=== PATIENT | female | born 1975 | race African-American/Black ===

== ENCOUNTER → 2016-10-30 | Outpatient (CLI) | payer BC ==
[2016-10-30 10:49] LABS: BILIRUBIN,URINE NEGATIVE (NEGATIVE); BLOOD/HEMOGLOBIN,URINE NEGATIVE (NEGATIVE); GLUCOSE, URINE NEGATIVE (NEGATIVE); KETONES,URINE NEGATIVE (NEGATIVE); LEUKOCYTE ESTERASE ,URINE 3+ (NEGATIVE); NITRITES,URINE NEGATIVE (NEGATIVE); PH,URINE 6.5 (5.0 - 8.0); PROTEIN,URINE NEGATIVE (NEGATIVE); UROBILINOGEN,URINE NORMAL (NORMAL)
[2016-10-30 10:49] LABS: BASOPHILS # (AUTO) 0.1 X10^3/uL (0.0-0.1); BASOPHILS % (AUTO) 0.8 % (0.2-1.0); EOSINOPHILS # (AUTO) 0.2 x10^3/uL (0.0-0.2); HEMATOCRIT 36.6 % (36.0-47.0); HEMOGLOBIN 12.2 g/dL (12.0-16.0); LYMPHOCYTES # (AUTO) 2.6 X10^3/uL (1.3-2.9); LYMPHOCYTES % (AUTO) 33.6 % (21.0-51.0); MEAN CORPUSCULAR HEMOGLOBIN 29.2 pg (27.0-34.0); MEAN CORPUSCULAR HGB CONC 33.5 g/dL (33.0-35.0); MEAN CORPUSCULAR VOLUME 87.1 fL (80.0-100.0); MEAN PLATELET VOLUME 8.4 fL (7.4-11.0); MONOCYTES # (AUTO) 0.4 x10^3/uL (0.3-0.8); MONOCYTES % (AUTO) 5.2 % (0.0-13.0); NEUTROPHILS # (AUTO) 4.6 x10^3/uL (2.2-4.8); NEUTROPHILS % (AUTO) 58.4 % (42.0-75.0); PLATELET COUNT 293 X10^3/uL (150.0-450.0); RED CELL DISTRIBUTION WIDTH 15.3 % (11.6-16.5); WHITE BLOOD COUNT 7.9 X10^3/uL (3.6-10.0)
[2016-10-30 10:56] LABS: APPEARANCE,URINE HAZY (CLEAR); BACTERIA,URINE TRACE /HPF (NEGATIVE); COLOR,URINE YELLOW (YELLOW); RBC,URINE 0-2 /HPF (NEGATIVE); SQUAMOUS EPITHELIAL CELL,UR FEW /HPF (NEGATIVE)
[2016-10-30 11:09] LABS: ALANINE AMINOTRANSFERASE 43 Units/L (12-78); ALBUMIN 3.8 g/dL (3.4-5.0); ALKALINE PHOSPHATASE 49 Units/L (46-116); ASPARTATE AMINO TRANSFERASE 19 Units/L (15-37); BLOOD UREA NITROGEN 8 mg/dL (7-18); CALCIUM 9.2 mg/dL (8.5-10.1); CARBON DIOXIDE 26.6 mmol/L (21-32); CHLORIDE 104 mmol/L (98-107); CHOL/HDL RATIO 2.9 (0.0-5.0); CHOLESTEROL 197 mg/dL (0-200); CREATININE 0.76 mg/dL (0.55-1.02); HDL CHOLESTEROL 69 mg/dL (40-60); SODIUM 137 mmol/L (136-145); TOTAL PROTEIN 7.4 g/dL (6.4-8.2); TRIGLYCERIDES 152 mg/dL (0-150); TSH (3RD GENERATION) 1.128 uIU/mL (0.358-3.74); eGFR BLACK RACES > 60 (>60); eGFR NON BLACK RACES > 60 (>60)
== END ==
LOC: LAB 10:23
PROVIDERS: ATTEND Family Medicine
DX: Z79.899 Other long term (current) drug therapy (principal); Z13.29 Encounter for screening for other suspected endocrine disorder; E78.4 Other hyperlipidemia; E55.9 Vitamin D deficiency, unspecified
CPT/HCPCS: 36415; 80053; 80061; 81001; 82306; 84439; 84443; 85025

== ENCOUNTER → 2016-11-25 | Outpatient (CLI) | payer BC ==
--- NOTE | 2016-11-28 08:20 | MG ---
HISTORY: SCREENING Comparison: None FINDINGS: Bilateral CC and MLO projections of the right and left breast were obtained. Heterogeneously dense f ibroglandular tissue is seen to be present. No dominant suspicious architectural distortion, mass or clustered microcalcifications can be observed to suggest malignancy. No skin thickening or nipple r etraction is appreciated. No pathological lymphadenopathy can be identified. IMPRESSION: NO RADIOGRAPHIC EVIDENCE OF MALIGNANCY. ACR CATEGORY I - NEGATIVE EXAM. FOLLOW-UP EXAM 1 YEAR. Diagnostic CAD was utilized and reviewed. * 0 (ZERO) - ASSESSMENT INCOMPLETE; ADDITIONAL IMAGING IS NEEDED. * 1/1 (ONE) - NEGATIVE. * 2/II (TWO) - BENIGN FINDINGS. * 3/III (THREE) - PROBABLY BENIGN FINDING; SHORT INTERVAL FOLLOW-UP SUGGESTED. * 4/IV (FOUR) - SUSPICIOUS ABNORMALITY; BIOPSY SHOULD BE CONSIDERED. * 5/V (FIVE) - HIGHLY SUSPICIOUS OF MALIGNANCY; BIOPSY SHOULD BE PERFORMED. A NEGATIVE X-RAY REPORT SHOULD NOT DELAY BIOPSY IF A DOMINANT OR CLINICALLY SUSPICIOUS MASS IS PRESENT; 4 TO 8 PERCENT OF CANCERS ARE NOT IDENTIFIED BY X-RAY. A NEGA TIVE REPORT MAY REINFORCE THE CLINICAL IMPRESSION. ADENOSIS AND DENSE BREASTS MAY OBSCURE AN UNDERLY ING NEOPLASM. Reported By:
== END ==
LOC: RAD 10:54
PROVIDERS: ATTEND Family Medicine
DX: Z12.31 Encounter for screening mammogram for malignant neoplasm of breast (principal)
CPT/HCPCS: 77067

== ENCOUNTER 2016-12-11 09:49 | Day surgery (SDC) | payer BC ==
[2016-12-11] MEDS ORDERED: D5 LR 1000 ML 1,000 ML IV ONE (10:27)
[2016-12-11] MEDS ORDERED: DIPRIVAN VIAL 20 ML ONE (11:34)
[2016-12-11 12:42] VITALS: BP 142/82
== END 2016-12-11 12:15 | disposition home or self-care (01) ==
LOC: SURG1 09:49
PROVIDERS: ATTEND Internal Medicine Gastroenterology
PROC: 0DJD8ZZ Inspection of Lower Intestinal Tract, Via Natural or Artificial Opening Endoscopic (ICD-10-PCS; principal; 2016-12-11 18:45)
PROC: 0DBN8ZX Excision of Sigmoid Colon, Via Natural or Artificial Opening Endoscopic, Diagnostic (ICD-10-PCS; principal; 2016-12-11 18:45)
DX: Z12.11 Encounter for screening for malignant neoplasm of colon (principal); Z80.0 Family history of malignant neoplasm of digestive organs; K63.5 Polyp of colon; K64.0 First degree hemorrhoids
CPT/HCPCS: A4217; J3490; J7120

== ENCOUNTER 2017-01-29 10:39 | Day surgery (SDC) | payer BC ==
[2017-01-29] MEDS ORDERED: D5 LR 1000 ML 1,000 ML IV ONE (10:52)
[2017-01-29] MEDS ORDERED: DIPRIVAN VIAL 20 ML ONE (12:04)
[2017-01-29 12:35] VITALS: BP 140/67
== END 2017-01-29 12:35 | disposition home or self-care (01) ==
LOC: SURG1 10:39
PROVIDERS: ATTEND Internal Medicine Gastroenterology
PROC: 0DB88ZX Excision of Small Intestine, Via Natural or Artificial Opening Endoscopic, Diagnostic (ICD-10-PCS; principal; 2017-01-29 17:15)
PROC: 0DB68ZX Excision of Stomach, Via Natural or Artificial Opening Endoscopic, Diagnostic (ICD-10-PCS; principal; 2017-01-29 17:15)
PROC: 0DJ08ZZ Inspection of Upper Intestinal Tract, Via Natural or Artificial Opening Endoscopic (ICD-10-PCS; principal; 2017-01-29 17:15)
DX: R07.89 Other chest pain (principal); R10.13 Epigastric pain; K21.9 Gastro-esophageal reflux disease without esophagitis; K20.8 Other esophagitis; K29.60 Other gastritis without bleeding; K29.80 Duodenitis without bleeding
CPT/HCPCS: A4217; J3490; J7120

== ENCOUNTER 2018-11-22 15:45 | Observation (INO) ==
[2018-11-22 16:43] LABS: BASOPHILS # (AUTO) 0.1 X10^3/uL (0.0-0.1); BASOPHILS % (AUTO) 0.7 % (0.2-1.0); EOSINOPHILS # (AUTO) 0.1 x10^3/uL (0.0-0.2); EOSINOPHILS % (AUTO) 1.1 % (0.9-2.9); HEMATOCRIT 42.5 % (36.0-47.0); HEMOGLOBIN 14.6 g/dL (12.0-16.0); LYMPHOCYTES # (AUTO) 2.6 X10^3/uL (1.3-2.9); LYMPHOCYTES % (AUTO) 27.4 % (21.0-51.0); MEAN CORPUSCULAR HEMOGLOBIN 31.7 pg (27.0-34.0); MEAN CORPUSCULAR HGB CONC 34.4 g/dL (33.0-35.0); MEAN CORPUSCULAR VOLUME 92.1 fL (80.0-100.0); MONOCYTES # (AUTO) 0.6 x10^3/uL (0.3-0.8); MONOCYTES % (AUTO) 6.6 % (0.0-13.0); NEUTROPHILS % (AUTO) 64.2 % (42.0-75.0); PLATELET COUNT 332 X10^3/uL (150.0-450.0); RED BLOOD COUNT 4.62 X10^6/uL (3.5-5.4); WHITE BLOOD COUNT 9.3 X10^3/uL (3.6-10.0)
[2018-11-22] MEDS: D5 1/2 NS 1000 ML 1,000 ML IV SCH (16:54)
[2018-11-22] MEDS: DILAUDID INJ IVP PRN ×2 (16:54→20:05)
[2018-11-22] MEDS: ZOFRAN INJ 4 MG VIAL IVP PRN (16:56)
[2018-11-22 17:00] LABS: ALANINE AMINOTRANSFERASE 163 Units/L (12-78); ALBUMIN 4.6 g/dL (3.4-5.0); ALKALINE PHOSPHATASE 112 Units/L (46-116); AMYLASE 51 Units/L (25-115); ASPARTATE AMINO TRANSFERASE 326 Units/L (15-37); BLOOD UREA NITROGEN 9 mg/dL (7-18); CALCIUM 9.6 mg/dL (8.5-10.1); CARBON DIOXIDE 27.7 mmol/L (21-32); CHLORIDE 97 mmol/L (98-107); LIPASE 236 Units/L (73-393); SODIUM 135 mmol/L (136-145); TOTAL PROTEIN 8.7 g/dL (6.4-8.2); eGFR NON BLACK RACES > 60 (>60)
[2018-11-22 17:27] VITALS: BMI 29.2
[2018-11-22] MEDS: PHENERGAN INJ 25 MG IM PRN (20:05)
[2018-11-23] MEDS: DILAUDID INJ IVP PRN ×5 (00:42→19:12)
[2018-11-23] MEDS: D5 1/2 NS 1000 ML 1,000 ML IV SCH ×4 (00:42→21:01)
[2018-11-23 05:10] LABS: BASOPHILS % (AUTO) 0.7 % (0.2-1.0); EOSINOPHILS # (AUTO) 0.1 x10^3/uL (0.0-0.2); EOSINOPHILS % (AUTO) 1.2 % (0.9-2.9); HEMATOCRIT 39.7 % (36.0-47.0); HEMOGLOBIN 13.2 g/dL (12.0-16.0); LYMPHOCYTES # (AUTO) 2.2 X10^3/uL (1.3-2.9); LYMPHOCYTES % (AUTO) 32.6 % (21.0-51.0); MEAN CORPUSCULAR HEMOGLOBIN 31.1 pg (27.0-34.0); MEAN CORPUSCULAR HGB CONC 33.3 g/dL (33.0-35.0); MEAN CORPUSCULAR VOLUME 93.2 fL (80.0-100.0); MEAN PLATELET VOLUME 8.1 fL (7.4-11.0); MONOCYTES # (AUTO) 0.5 x10^3/uL (0.3-0.8); MONOCYTES % (AUTO) 7.9 % (0.0-13.0); NEUTROPHILS # (AUTO) 3.9 x10^3/uL (2.2-4.8); NEUTROPHILS % (AUTO) 57.6 % (42.0-75.0); PLATELET COUNT 281 X10^3/uL (150.0-450.0); RED BLOOD COUNT 4.26 X10^6/uL (3.5-5.4); RED CELL DISTRIBUTION WIDTH 14.8 % (11.6-16.5); WHITE BLOOD COUNT 6.7 X10^3/uL (3.6-10.0)
[2018-11-23 05:24] LABS: ALANINE AMINOTRANSFERASE 319 Units/L (12-78); ALBUMIN 3.6 g/dL (3.4-5.0); ALKALINE PHOSPHATASE 136 Units/L (46-116); ASPARTATE AMINO TRANSFERASE 477 Units/L (15-37); BLOOD UREA NITROGEN 5 mg/dL (7-18); CALCIUM 8.6 mg/dL (8.5-10.1); CARBON DIOXIDE 27.4 mmol/L (21-32); CHLORIDE 100 mmol/L (98-107); COR NA(FOR HYPERGLY) 135 mmol/L (136-145); CREATININE 0.71 mg/dL (0.55-1.02); SODIUM 135 mmol/L (136-145); TOTAL PROTEIN 7.2 g/dL (6.4-8.2); eGFR NON BLACK RACES > 60 (>60)
[2018-11-23] MEDS: ZOFRAN INJ 4 MG VIAL IVP PRN (05:38)
[2018-11-23] MEDS ORDERED: PHARMACY CONSULT - DOSE _____ XX SCH (08:00)
[2018-11-23] MEDS: PHENERGAN INJ 25 MG IM PRN (08:33)
[2018-11-23] MEDS ORDERED: FLEET ENEMA ADULT PR ONE ×2 (10:22→11:00)
[2018-11-23] MEDS: PROTONIX TAB 40 MG PO SCH (14:11)
[2018-11-23] MEDS: MAALOX or MYLANTA PO PRN ×2 (14:12→19:06)
--- NOTE | 2018-11-23 22:59 | DR.PROGNOT ---
Hospital Progress Notes - Progress Note for Day of: Progress Note Date: 11/23/18 - Chief Complaint Chief Complaint: Rt side abdominal pain . tolerated liquid diet and had small BM after fleet enema . lab work showed elevated liver enzymes with norml bilirubin .. only mild elevated Alk phos . normal CBC .. afebrile . - Past Medical Family Social History Past Med/Fam/Surg Hx: No changes since H&P Allergies: Allergies Penicillins Allergy (Mild, Verified 11/19/18 09:05) Sulfa (Sulfonamide Antibiotics) [SULFA] Allergy (Verified 11/19/18 09:05) - Review Of Systems ROS: No change since H&P - Vital Signs Vital Signs: Temperature 99.1 F Pulse Rate [Right Brachial] 81 Pulse Rate [Left Radial] 83 Respiratory Rate 18 Blood Pressure [Right Arm] 112/72 Blood Pressure [Left Arm] 148/80 Blood Pressure 148/80 O2 Sat by Pulse Oximetry 99 - Physical Exam Oriented: Normal Eyes: Normal Ear: Normal Nose: Normal Cardiovascular: Normal : Normal, Dysuria GI:Auscultation: Normal Skin: Normal Musculoskeletal: Normal Psychiatric: Normal Mood Description: Depressed Speech Pattern: Clear, Appropriate - Laboratory and Diagnostics Result Diagrams: 11/23/18 04:54 11/23/18 04:54 Labs: Laboratory WBC 6.7 X10^3/uL (3.6-10.0) 11/23/18 04:54 RBC 4.26 X10^6/uL (3.5-5.4) 11/23/18 04:54 Hgb 13.2 g/dL (12.0-16.0) 11/23/18 04:54 Hct 39.7 % (36.0-47.0) 11/23/18 04:54 MCV 93.2 fL (80.0-100.0) 11/23/18 04:54 MCH 31.1 pg (27.0-34.0) 11/23/18 04:54 MCHC 33.3 g/dL (33.0-35.0) 11/23/18 04:54 RDW 14.8 % (11.6-16.5) 11/23/18 04:54 Plt Count 281 X10^3/uL (150.0-450.0) 11/23/18 04:54 MPV 8.1 fL (7.4-11.0) 11/23/18 04:54 Neut % (Auto) 57.6 % (42.0-75.0) 11/23/18 04:54 Lymph % (Auto) 32.6 % (21.0-51.0) 11/23/18 04:54 [place] % (Auto) 7.9 % (0.0-13.0) 11/23/18 04:54 Eos % (Auto) 1.2 % (0.9-2.9) 11/23/18 04:54 Baso % (Auto) 0.7 % (0.2-1.0) 11/23/18 04:54 Neut # (Auto) 3.9 x10^3/uL (2.2-4.8) 11/23/18 04:54 Lymph # (Auto) 2.2 X10^3/uL (1.3-2.9) 11/23/18 04:54 [place] # (Auto) 0.5 x10^3/uL (0.3-0.8) 11/23/18 04:54 Eos # (Auto) 0.1 x10^3/uL (0.0-0.2) 11/23/18 04:54 Baso # (Auto) 0.0 X10^3/uL (0.0-0.1) 11/23/18 04:54 Absolute Nucleated RBC 0.0 /100WBC 11/23/18 04:54 Sodium 135 mmol/L (136-145) L 11/23/18 04:54 Corrected Sodium 135 mmol/L (136-145) L 11/23/18 04:54 Potassium 3.4 mmol/L (3.5-5.1) L 11/23/18 04:54 Chloride 100 mmol/L (98-107) 11/23/18 04:54 Carbon Dioxide 27.4 mmol/L (21-32) 11/23/18 04:54 BUN 5 mg/dL (7-18) L 11/23/18 04:54 Creatinine 0.71 mg/dL (0.55-1.02) 11/23/18 04:54 Est GFR (MDRD) Af Amer > 60 (>60) 11/23/18 04:54 Est GFR (MDRD) Non-Af > 60 (>60) 11/23/18 04:54 Glucose 119 mg/dL (65-99) H 11/23/18 04:54 Calcium 8.6 mg/dL (8.5-10.1) 11/23/18 04:54 Corrected Calcium TNP 11/23/18 04:54 Total Bilirubin 0.40 mg/dL (0.2-1.0) 11/23/18 04:54 AST 477 Units/L (15-37) H 11/23/18 04:54 ALT 319 Units/L (12-78) H 11/23/18 04:54 Alkaline Phosphatase 136 Units/L (46-116) H 11/23/18 04:54 Total Protein 7.2 g/dL (6.4-8.2) 11/23/18 04:54 Albumin 3.6 g/dL (3.4-5.0) 11/23/18 04:54 Globulin 3.6 g/dL (2.5-4.5) 11/23/18 04:54 Albumin/Globulin Ratio 1.0 Ratio (1.1-2.1) L 11/23/18 04:54 Amylase 51 Units/L (25-115) 11/22/18 16:31 Lipase 236 Units/L (73-393) 11/22/18 16:31 - Assessment and Plan 1: post operative ileus .s/p lap floresita. liver dysfunction . same plan ,hepatitis profile . advance diet , repeat lab work . CT and MRCP .if still symptomatic
--- NOTE | 2018-11-23 23:49 | DR.H&P ---
H&P - History & Physical for Day of: H&P Date: 11/22/18 - Chief Complaint Chief Complaint: Pt was seen in the office with abdominal pain , nausea , vomiting and no BM . Pt is s/p lap floresita as OP . was found to have adhesions around the liver and chronic inflamation around the GB during surgery . was seen in the ER 2 days ago with the same symptoms .lab work was normal . admitted from the office for hydration and further evaluation - Past Medical History Past Medical History: Hypertension, Dyslipidemia - Past Surgical History Surgical History: , Cholecystectomy, Other - Family History Family Medical History: Diabetes Mellitus, Cancer, [place], Hypertension - Social History Does patient currently use any type of tobacco product: Yes Have you used tobacco products in the last 12 months: Yes Type of Tobacco Use: Cigarettes How many years tobacco product used: 24 Does any household member use tobacco: No Alcohol Use: None Drug Use: Prescription Drugs - Medications Home Medications: Penicillins Allergy (Mild, Verified 11/19/18 09:05) Sulfa (Sulfonamide Antibiotics) [SULFA] Allergy (Verified 11/19/18 09:05) CONTINUE taking the following medications dicyclomine 1 tab PO DAILY 11/23/18 [History] - Physical Exam Vital Signs: Temperature 99.1 F Pulse Rate [Right Brachial] 81 Pulse Rate [Left Radial] 83 Respiratory Rate 18 Blood Pressure [Right Arm] 112/72 Blood Pressure [Left Arm] 148/80 Blood Pressure 148/80 O2 Sat by Pulse Oximetry 99 Oriented: Normal - Assessment/Plan (1) Adynamic ileus Status: Acute - Allergies Allergies/Adverse Reactions: Allergies Allergy/AdvReac Type Severity Reaction Status Date / Time Penicillins Allergy Mild Verified 11/19/18 09:05 Sulfa (Sulfonamide Allergy Verified 11/19/18 09:05 Antibiotics) [SULFA]
[2018-11-24] MEDS: D5 1/2 NS 1000 ML 1,000 ML IV SCH ×3 (00:48→07:51)
[2018-11-24 05:05] LABS: ALANINE AMINOTRANSFERASE 186 Units/L (12-78); ALBUMIN 3.1 g/dL (3.4-5.0); ALKALINE PHOSPHATASE 105 Units/L (46-116); ASPARTATE AMINO TRANSFERASE 102 Units/L (15-37); BLOOD UREA NITROGEN 2 mg/dL (7-18); CALCIUM 8.3 mg/dL (8.5-10.1); CARBON DIOXIDE 25.5 mmol/L (21-32); CHLORIDE 105 mmol/L (98-107); COR NA(FOR HYPERGLY) 140 mmol/L (136-145); CREATININE 0.68 mg/dL (0.55-1.02); SODIUM 140 mmol/L (136-145); TOTAL PROTEIN 6.1 g/dL (6.4-8.2); eGFR NON BLACK RACES > 60 (>60)
[2018-11-24] MEDS: PROTONIX TAB 40 MG PO SCH (08:55)
[2018-11-24 09:18] VITALS: BP 125/81
[2018-11-29 06:23] LABS: HEPATITIS B SURFACE ANTIGEN Negative (Negative)
== END 2018-11-24 09:55 | disposition home or self-care (01) ==
LOC: MED/SURG
PROVIDERS: ADMIT Surgery; ATTEND Surgery
DX: R79.89 Other specified abnormal findings of blood chemistry; R10.84 Generalized abdominal pain; K56.0 Paralytic ileus; E78.2 Mixed hyperlipidemia; I10 Essential (primary) hypertension; Z90.49 Acquired absence of other specified parts of digestive tract; R11.2 Nausea with vomiting, unspecified
CPT/HCPCS: 36415; 80053; 80074; 82150; 83690; 85025; 96367; 96372; 96374; A4222; G0378; J1170; J2405; J2550; S5010

== ENCOUNTER 2024-06-13 06:39 | Inpatient (IN) ==
[~2024-06-13 06:39] MED LIST: KETAMINE HCL ONE; ULTANE GAS IN ONE; XYLOCAINE 2 % (PLAIN) ONE
[2024-06-13] MEDS: DUONEB 0.5 MG/3 MG (3 mL) NEB ONE (06:45)
[2024-06-13] MEDS: NOZIN NASAL SANITIZER TP ONE (06:45)
[2024-06-13] MEDS: NS 1,000 ML IV 1,000 ML IV SCH ×2 (07:00→11:17)
[2024-06-13] MEDS: NS IV PRN (07:00)
[2024-06-13] MEDS: PEPCID 20 MG VIAL IVP PRN (07:05)
[2024-06-13] MEDS: ZOFRAN INJ 4 MG VIAL IVP PRN (07:05)
[2024-06-13] MEDS: REGLAN INJ 10 MG VIAL IVP PRN (07:05)
[2024-06-13 07:13] VITALS: BMI 32.7
[2024-06-13] MEDS: ANCEF VIAL 1 GRAM IVP ONE (07:15)
[2024-06-13] MEDS: ANCEF VIAL 1 GRAM IV PRN (07:15)
[2024-06-13] MEDS: NS 100 ML IV 100 ML ONE (07:15)
[2024-06-13] MEDS: PEPCID 20 MG VIAL ONE (07:17)
[2024-06-13] MEDS: BRIDION ONE (07:17)
[2024-06-13] MEDS: FENTANYL VIAL INJ 100 mcg ONE ×2 (07:17→07:38)
[2024-06-13] MEDS: ZOFRAN INJ 4 MG VIAL ONE (07:17)
[2024-06-13] MEDS: ULTANE GAS IN ONE (07:17)
[2024-06-13] MEDS: ZEMURON 100 MG VIAL ONE (07:17)
[2024-06-13] MEDS: OFIRMEV IV 1000 MG VIAL 1,000 MG/100 ML VIAL IV ONE (07:17)
[2024-06-13] MEDS: REGLAN INJ 10 MG VIAL ONE (07:17)
[2024-06-13] MEDS: TORADOL 30 MG VIAL ONE (07:17)
[2024-06-13] MEDS: VERSED ONE (07:17)
[2024-06-13] MEDS: DIPRIVAN VIAL 20 ML ONE (07:17)
[2024-06-13] MEDS: VERSED IVP PRN (07:19)
[2024-06-13] MEDS: XYLOCAINE 2 % (PLAIN) INJ PRN (07:24)
[2024-06-13] MEDS: DIPRIVAN VIAL 160 ML IVP PRN (07:24)
[2024-06-13] MEDS: KETAMINE HCL IV PRN (07:28)
[2024-06-13] MEDS: BETADINE SOLN ONE (07:30)
[2024-06-13] MEDS: FENTANYL VIAL INJ 100 mcg IVP PRN (08:02)
[2024-06-13] MEDS ORDERED: ZOFRAN INJ 4 MG VIAL IVP PRN ×2 (08:09→10:55)
[2024-06-13] MEDS ORDERED: REGLAN INJ 10 MG VIAL IVP PRN (08:09)
[2024-06-13] MEDS ORDERED: BARHEMSYS INJ IVP PRN (08:09)
[2024-06-13] MEDS ORDERED: BENADRYL INJ 50 MG VIAL IVP PRN ×2 (08:09→10:55)
[2024-06-13] MEDS: NORMODYNE INJ 20 MG VIAL ONE (08:14)
[2024-06-13] MEDS: ProvayBLUE 0.5% ONE (08:17)
[2024-06-13] MEDS: PRECEDEX INJ VIAL IVP PRN (08:44)
[2024-06-13] MEDS: PRECEDEX INJ VIAL ONE (08:44)
[2024-06-13] MEDS: NS 1,000 ML IV 1,000 ML ONE (09:09)
[2024-06-13] MEDS: ZEMURON 100 MG VIAL IVP PRN (09:23)
[2024-06-13] MEDS: TORADOL 30 MG VIAL IVP PRN ×2 (09:32→16:43)
[2024-06-13] MEDS: OFIRMEV IV 1000 MG VIAL 1,000 MG/100 ML VIAL IV PRN (09:54)
[2024-06-13] MEDS: BRIDION IVP PRN (10:02)
[2024-06-13] MEDS: NORMODYNE INJ 20 MG VIAL IVP PRN (10:16)
[2024-06-13] MEDS ORDERED: NovoLIN R (or HumuLIN R) SUBCUT PRN (10:18)
[2024-06-13] MEDS: DILAUDID INJ ONE (10:20)
[2024-06-13] MEDS: DILAUDID INJ IVP PRN (10:25)
[2024-06-13] MEDS: APRESOLINE INJ 20 MG VIAL ONE (10:32)
[2024-06-13] MEDS ORDERED: NARCAN INJ IVP PRN (10:55)
[2024-06-13] MEDS: MORPHINE SULFATE PCA 30 MG IVP PRN (11:18)
[2024-06-13] MEDS: NovoLIN R (or HumuLIN R) SUBCUT PRN (12:37)
[2024-06-13] MEDS ORDERED: SNACK - Diabetic Appropriate PO SCH (20:00)
[2024-06-14] MEDS: SNACK - Diabetic Appropriate PO SCH (00:37)
[2024-06-14 05:19] LABS: BASOPHILS % (AUTO) 0.3 % (0.2-1.0); EOSINOPHILS % (AUTO) 0.3 % (0.9-2.9); HEMATOCRIT 28.5 % (36.0-47.0); HEMOGLOBIN 9.9 g/dL (12.0-16.0); LYMPHOCYTES # (AUTO) 3.2 X10^3/uL (1.3-2.9); LYMPHOCYTES % (AUTO) 31.4 % (21.0-51.0); MEAN CORPUSCULAR HEMOGLOBIN 31.2 pg (27.0-34.0); MEAN CORPUSCULAR HGB CONC 34.8 g/dL (33.0-35.0); MEAN CORPUSCULAR VOLUME 89.6 fL (80.0-100.0); MEAN PLATELET VOLUME 8.7 fL (7.4-11.0); MONOCYTES # (AUTO) 0.5 x10^3/uL (0.3-0.8); MONOCYTES % (AUTO) 4.8 % (0.0-13.0); NEUTROPHILS # (AUTO) 6.5 x10^3/uL (2.2-4.8); NEUTROPHILS % (AUTO) 63.2 % (42.0-75.0); PLATELET COUNT 195 X10^3/uL (150.0-450.0); RED BLOOD COUNT 3.18 X10^6/uL (3.5-5.4); RED CELL DISTRIBUTION WIDTH 14.1 % (11.6-16.5); WHITE BLOOD COUNT 10.3 X10^3/uL (3.6-10.0)
[2024-06-14 05:22] LABS: BLOOD UREA NITROGEN 4 mg/dL (7-18); CALCIUM 8.1 mg/dL (8.5-10.1); CARBON DIOXIDE 28.7 mmol/L (21-32); CHLORIDE 104 mmol/L (98-107); CREATININE 0.72 mg/dL (0.55-1.02); GLUCOSE 109 mg/dL (65-99); POTASSIUM 3.1 mmol/L (3.5-5.1); SODIUM 140 mmol/L (136-145); eGFR NON BLACK RACES > 60 (>60)
[2024-06-14] MEDS ORDERED: CONSULT PHARMACY - POTASSIUM & MAGNESIUM XX SCH (07:00)
[2024-06-14] MEDS: PREVACID PO SCH (08:58)
[2024-06-14] MEDS: K-DUR TAB 20 MEQ PO SCH (08:58)
[2024-06-14] MEDS: ESTRACE PO SCH (08:58)
[2024-06-14] MEDS: PERCOCET TAB 5/325 MG PO PRN (08:59)
[2024-06-14] MEDS: CELEXA PO SCH (08:59)
[2024-06-14] MEDS: COLACE CAP 100 MG PO SCH (08:59)
[2024-06-14] MEDS: COZAAR PO SCH (08:59)
[2024-06-14] MEDS: MAG-OX TAB PO SCH (08:59)
[2024-06-14] MEDS: BACTROBAN TOPICAL OINT TOP SCH (15:26)
[2024-06-14] MEDS ORDERED: SNACK - Diabetic Appropriate PO SCH (20:00)
[2024-06-14] MEDS: CRESTOR TAB 10 MG PO SCH (20:20)
[2024-06-14] MEDS: MOTRIN TAB 800 MG PO PRN (20:21)
[2024-06-15] MEDS: GLUCOTROL XL 24-HR PO SCH (07:30)
[2024-06-15 07:46] VITALS: BP 115/63; RESP 21; TEMP 97.9; O2SAT 95
[2024-06-15 09:39] VITALS: PULSE 80
== END 2024-06-15 11:30 | disposition home or self-care (01) | DRG 742 ==
LOC: MED/SURG 06:39 → OBS 07:27 → MED/SURG 07:31
PROVIDERS: ADMIT Specialist; ATTEND Specialist
DX: K21.9 Gastro-esophageal reflux disease without esophagitis; E83.42 Hypomagnesemia; D50.8 Other iron deficiency anemias; K66.0 Peritoneal adhesions (postprocedural) (postinfection); D25.2 Subserosal leiomyoma of uterus; R10.2 Pelvic and perineal pain; E87.6 Hypokalemia; N92.5 Other specified irregular menstruation; E11.65 Type 2 diabetes mellitus with hyperglycemia; N94.4 Primary dysmenorrhea; N99.71 Accidental puncture and laceration of a genitourinary system organ or structure during a genitourinary system procedure